=== PATIENT | female | born 1955 | race Asian ===

== ENCOUNTER 2019-09-29 11:44 | Emergency (ER) | payer MEDICAID ==
[~2019-09-29] VITALS: Ht 157.5 cm; Wt 68.5 kg
--- NOTE | 2019-09-29 12:06 | NUR ---
BIB [facility], CHEST PAIN LAST NIGHT WHILE COUGHING. 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 CHARACTERIZES PAIN PRESSURE. ALSO REPORTS FACIAL EDEMA. CAME FROM [place] LAST MONTH. NO OTHER MEDICAL COMPLAINTS AT THIS TIME. NO ACUTE DISTRESS NOTED. RR EVEN AND UNLABORED ON RA. SEEN BY . ON MONITOR AND AWAITING ORDERS.
--- NOTE | 2019-09-29 12:14 | NUR ---
IV ACCESS OBTAINED, BLOOD DRAWN AND SENT TO LAB. PT MADELIN WELL.
--- NOTE | 2019-09-29 12:18 | NUR ---
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
[2019-09-29 12:19] LABS: BASOPHILS # (AUTO) 0.2 /CMM (0.0-0.2); BASOPHILS % (AUTO) 1.7 % (0.0-2.0); EOSINOPHILS % (AUTO) 5.1 % (0.0-6.0); HEMATOCRIT 42 % (33-45); HEMOGLOBIN 13.9 g/dL (11.5-14.8); LYMPHOCYTES # (AUTO) 1.9 /CMM (0.8-4.8); LYMPHOCYTES % (AUTO) 19.3 % (20.0-44.0); MEAN CORPUSCULAR HGB CONC 33 g/dl (31.0-36.0); MEAN CORPUSCULAR VOLUME 80 fL (82-100); MONOCYTES # (AUTO) 0.2 /CMM (0.1-1.30); MONOCYTES % (AUTO) 2.3 % (2.0-12.0); NEUTROPHILS # (AUTO) 7.1 /CMM (1.8-8.9); NEUTROPHILS % (AUTO) 71.6 % (43.0-81.0); PLATELET COUNT (AUTO) 311 /CMM (150-450); RED BLOOD CELL COUNT(AUTO) 5.28 MIL/uL (4.0-5.2)
[2019-09-29 12:25] LABS: CALCIUM, SERUM 10.5 mg/dL (8.5-10.1); CARBON DIOXIDE 29 mmol/L (21-32); CHLORIDE 96 mmol/L (98-107); CREATININE 0.8 mg/dL (0.6-1.3); GLUCOSE 160 mg/dL (74-106); POTASSIUM 3.6 mmol/L (3.5-5.1); SODIUM SERUM 136 mmol/L (136-145); UREA NITROGEN, BLOOD 10 mg/dL (7-18)
[2019-09-29 12:41] LABS: ALANINE AMINOTRANSFERASE 39 U/L (12-78); ALKALINE PHOSPHATASE 87 U/L (46-116); ASPARTATE AMINOTRANSFERASE 34 U/L (15-37); BILIRUBIN,DIRECT 0.1 mg/dL (0.0-0.2); BILIRUBIN,TOTAL 0.3 mg/dL (0.2-1.0); TOTAL PROTEIN, SERUM 8.1 g/dL (6.4-8.2)
--- NOTE | 2019-09-29 13:31 | NUR ---
IV removed. Catheter intact and site benign. Pressure and 4x4 applied to site. No bleeding noted.Patient discharged to home in stable condition. Written and verbal after care instructions given. Patient verbalizes understanding of instruction.
[2019-09-29 13:32] VITALS: BP 137/64
== END 2019-09-29 13:32 | disposition home or self-care (01) ==
LOC: ER 11:46
DX: R05 Cough (principal); R22.0 Localized swelling, mass and lump, head; I10 Essential (primary) hypertension; E11.9 Type 2 diabetes mellitus without complications; Z95.5 Presence of coronary angioplasty implant and graft
CPT/HCPCS: 36415; 71045-TC; 80048-TC; 80076-TC; 84484-TC; 85025-TC

== ENCOUNTER 2022-09-29 17:17 | Emergency (ER) | payer MEDICAID, OTHER ==
[~2022-09-29] VITALS: Ht 154.9 cm; Wt 69.9 kg
--- NOTE | 2022-09-29 17:30 | NUR ---
BIB SELF FOR GLF. A/O X 3
--- NOTE | 2022-09-29 19:35 | NUR ---
Patient discharged to home in stable condition. Written and verbal after care instructions given. Patient verbalizes understanding of instruction.
[2022-09-29 19:40] VITALS: BP 166/71
== END 2022-09-29 19:41 | disposition home or self-care (01) ==
LOC: ER 17:38
DX: S63.616A Unspecified sprain of right little finger, initial encounter (principal); S20.211A Contusion of right front wall of thorax, initial encounter; I10 Essential (primary) hypertension; E11.9 Type 2 diabetes mellitus without complications; W18.30XA Fall on same level, unspecified, initial encounter; Y93.89 Activity, other specified; Y92.89 Other specified places as the place of occurrence of the external cause; Y99.8 Other external cause status
CPT/HCPCS: 71100-TC; 73140-TC

== ENCOUNTER 2024-10-12 08:16 | Emergency (ER) | payer MEDICAID ==
[~2024-10-12] VITALS: Ht 154.9 cm; Wt 74.4 kg
[2024-10-12] MEDS ORDERED: LIDOCAINE 1%-EPI 1:100,000 20 ML VIAL ONE (09:07)
[2024-10-12] MEDS: LIDOCAINE 1%-EPI 1:100,000 20 ML VIAL TP ONE (09:32)
[2024-10-12] MEDS ORDERED: CEPH500C2 PO (09:39)
[2024-10-12 09:56] VITALS: BP 135/67; TEMP 98.6; O2SAT 99
== END 2024-10-12 09:57 | disposition home or self-care (01) ==
LOC: ER 08:27
DX: L08.9 Local infection of the skin and subcutaneous tissue, unspecified (principal); L72.3 Sebaceous cyst; E11.9 Type 2 diabetes mellitus without complications; I10 Essential (primary) hypertension
CPT/HCPCS: 99284; 10060; A6403; J3490